=== PATIENT | female | born 1980 | race Caucasian/White ===

== ENCOUNTER 2017-05-31 18:28 | Emergency (ER) | payer OTHER, MEDICAID, SELFPAY ==
[2017-05-31 18:28] VITALS: PULSE 92; RESP 16; TEMP 37.1; O2SAT 100; BMI 29.0
[2017-05-31 20:27] LABS: Bacteria 0 SEEN /hpf (None Seen); Mucous, Urine 0 SEEN /hpf (<or=2+); Red Blood Cells-Urine 0 SEEN /hpf (0-5)
[2017-05-31 20:30] LABS: Color, Urine Yellow (Yellow); Glucose, Dipstick Normal (Normal); Ketone-Dipstick Negative (Negative); Leukocyte Esterase-Dipstick 100 /ul (Negative); Nitrite-Dipstick Negative (Negative); Occult Blood-Urine Negative /ul (Negative); Protein-Dipstick Negative (Negative); Specific Gravity, Urine 1.005 (1.002-1.030); Urine Bilirubin Dipstick Negative (Negative); Urine Clarity Clear (Clear); Urine Urobilinogen Normal (Normal)
[2017-05-31 20:49] LABS: Squamous Epithelial Cells - UA 0-5 SEEN /hpf (5-10); White Blood Cells 0-5 SEEN /hpf (0-5)
[2017-05-31 20:52] LABS: Absolute Lymphocyte Count 1.74 X10^3/ul (0.83-4.51); Absolute Neutrophil Count 5.9 X10^3/uL (2.0-7.7); Basophil# 0.02 X10^3/uL; Basophil% 0.2 % (0-1); Eosinophil# 0.15 X10^3/uL; Eosinophils% 1.7 % (0-5); Lymphocyte # 1.74 X10^3/ul (4.0); Lymphocyte % 19.2 % (19-41); Mean Corp Hgb Conc 33.3 g/gl (32-36); Mean Corpuscular Hgb 30.8 pg (27.0-32.0); Mean Corpuscular Volume 92.5 fL (81-99); Mean Platelet Vol. 10.1 fl (6.2-12.0); Monocyte# 1.21 X10^3/uL; Monocyte% 13.3 % (0-10); Neutrophil # 5.93 X10^3/uL (2.7-7.7); Neutrophil % 65.4 % (47-70); Platelet Count 397 K/mm3 (150-450); RBC Distribution Width CV 12.9 % (11.6-14.6); RBC Distribution Width SD 43.3 fl (35.1-43.9); Red Blood Count 4.54 M/mm3 (4.2-5.4); White Blood Count 9.1 K/mm3 (4.4-11.0)
[2017-05-31 20:55] LABS: POSITIVE COUNT NO; POSITIVE DIFFERENTIAL NO; POSITIVE MORPHOLOGY NO
[2017-05-31 21:05] LABS: Anion Gap 6 (5-15); BUN 12 mg/dL (7-18); BUN/Creat Ratio 13.6 RATIO (10-20); Calcium,Total 8.8 mg/dL (8.5-10.1); Chloride 107 mmol/L (98-107); Creatinine, Serum 0.88 mg/dL (0.55-1.02); EST Glomerular Filtration Rate 77 mL/min (>60); Est Glom Filt Rate - Afr Amer 93 mL/min (>60); Estimated Creatinine Clearance 85.94 ml/min; Glucose 92 mg/dL (74-106); Potassium 4.5 mmol/L (3.5-5.1); Sodium Level 139 mmol/L (136-145)
--- NOTE | 2017-05-31 21:06 | US_ITS ---
STUDY: ABDOMINAL ULTRASOUND - RIGHT UPPER QUADRANT REASON FOR VISIT: Female, 36 years old. Right upper quadrant pain. TECHNIQUE: Ultrasound evaluation of the right upper quadrant was performed with real-time and static cerda-scale imaging. TECHNICAL QUALITY: Adequate. COMPARISON: None. FINDINGS: Liver: The liver measures 20.2 cm. There is increased echogenicity consistent with fatty infiltration. The bile ducts are within normal limits. There is hepatic color flow. The direction of portal flow is hepatopetal. There is no demonstrated mass lesion. Gallbladder: Normal distended gallbladder. The gallbladder wall measures 2 mm. There is a negative sonographic Nieves's sign. There is no pericholecystic fluid. There are no gallstones. Common Bile Duct (C.B.D.): The common bile duct measures 2 mm. Pancreas: Normal appearance of the head and partial body with the tail not completely seen. There is normal echogenicity of the pancreas. There is no demonstrated pancreatic mass or cyst. Right Kidney: Normal size of the right kidney. The right kidney measures 11.5 x 5.3 x 4.5 cm. Normal renal cortex. The right cortex measures 1.0 cm. There is no demonstrated renal mass or cyst. There is no right hydronephrosis. US/Gallbladder IMPRESSION: Hepatic steatosis with no evidence of acute abdominal process by ultrasound. Electronically Signed: Dago Blunt DO at 22:02 EST , Service support ,
[2017-05-31 21:20] LABS: Pregnancy, Serum, hCG Quali. NEGATIVE Negative (0-9 Nonpreg)
[2017-05-31 21:41] LABS: Lipase 217 U/L (73-393)
[2017-05-31 21:46] LABS: AST(SGOT) 26 U/L (15-37); Alanine Aminotransfer ALT/SGPT 28 U/L (13-56); Albumin, Serum 3.7 g/dL (3.2-5.0); Alkaline Phosphatase 49 U/L (45-117); Bilirubin, Direct 0.05 mg/dL (0.00-0.30); Globulin 3.8 g/dL (2.2-4.2); Protein, Total 7.5 g/dL (6.4-8.2)
[2017-05-31 21:54] VITALS: BP 156/98; PULSE 91; RESP 17; O2SAT 97
--- NOTE | 2017-05-31 22:14 | CT_ITS ---
STUDY: CT ABDOMEN AND PELVIS WITH CONTRAST REASON FOR EXAM: Female, 36 years old. Right-sided abdominal pain for several weeks. RADIATION DOSAGE (If Supplied By Facility): CTDIvol = ( 21.77 ) mGy, DLP = ( 1041.73 ) mGycm TECHNIQUE: Transaxial images were obtained from the dome of the diaphragm to the symphysis pubis without oral contrast. 100ML ml of Isovue 300 contrast was administered. Sagittal and coronal images were reconstructed. Individualized dose optimization techniques were used for this CT. COMPARISON: None. FINDINGS: The visualized lung bases are unremarkable. The visualized portions of the heart are within normal limits. Normal liver. Normal gallbladder and extrahepatic biliary system. Normal spleen. Normal pancreas. Normal bilateral adrenal glands. Normal right kidney. Normal left kidney. Normal visualized stomach. Normal small intestine. Normal colon. There is non-visualization of the appendix. Normal abdominal aorta. Normal inferior vena cava. Normal retroperitoneum. Normal urinary bladder. Bilateral pelvic adnexal clips are in place. There is a small umbilical hernia containing fat. Normal osseous structures. CT/Abdomen/Pelvis W IV Cont ONLY IMPRESSION: 1. No evidence of acute intra-abdominal process or focal inflammation. 2. Small fat-containing umbilical hernia is present with no evidence of inflammation. Electronically Signed: Dago Blunt DO at 23:20 EST , Service support ,
[2017-05-31] MEDS: Dicyclomine 10 MG Capsule 20 MG PO (22:20)
--- NOTE | 2017-05-31 23:28 | ED.VISSUMM ---
- ER Visit Summary Date of Service: 05/31/17 Chief Complaint: Abdominal pain History of Present Illness: The patient is a 36 F note several weeks having upper abdominal pain. She notes a right upper quadrant pain that radiates to the left. She states is worse with food. She notes alternating diarrhea and formed stools. No vomiting. No fevers. Pain has been worsening Physical Examination: Afebrile vital signs are stable Gen: Well-nourished well-developed Head: Normocephalic atraumatic Eyes: Perrl EOMI ENT: TMs clear no rhinorrhea moist mucous membranes Neck: Supple no lymphadenopathy no JVD nontender CVS: Regular rate rhythm no murmurs normal S1-S2 Respiratory: No distress clear to auscultation bilaterally chest nontender Abdomen: Soft tender to palpation right upper quadrant epigastrium without guarding or rebound nondistended normal bowel sounds no masses Back: Nontender Extremity: Nontender no edema Skin: Normal color no rash Neuro: alert orientated ?3 CN II-XII intact normal strength sensation reflexes gait cerebellar Psych: Tearful at times smiling at others Test Results: CBC CMP lipase normal. Urinalysis normal. Gallbladder ultrasound normal CT abdomen pelvis normal Emergency Department Course and Treatment: Patient received a dose of Bentyl. She states that the right upper quadrant pain was better but the epigastric pain still remained. She received a GI cocktail. She tells me that rounded the pain out. We will place her on Pepcid she needs to follow-up with primary care. She is unsure of who she wants to see for primary care I will refer her next on the no doc list Impression: 1. Acute abdominal pain This note was generated with [employer] dictation software. It may contain incorrect words, spelling, and punctuation that were not noted in review of the chart prior to signing ED Disposition - Plan for ED Patient: Disposition: Home or Assisted Living Chief Complaint: Abd Pain Instructions: ED Abdominal Pain Unkn Cause Prescriptions: Famotidine [Pepcid] 20 mg PO BID #28 tab Referrals: Care Physician,No Primary [Primary Care Provider] - Yusuf Wilkins MD [STAFF PHYSICIAN] - (call in am to schedule follow up appointment)
[2017-05-31 23:43] VITALS: BP 125/68; PULSE 76; RESP 18; O2SAT 98
== END 2017-05-31 23:44 | disposition home or self-care (01) ==
PROVIDERS: Emergency Provider Emergency Medicine
DX: R10.11 Right upper quadrant pain (principal); R10.13 Epigastric pain; R19.4 Change in bowel habit; E66.9 Obesity, unspecified; J34.89 Other specified disorders of nose and nasal sinuses; R05 Cough
CPT/HCPCS: 74177; 76705; 80048; 80076; 81001; 83690; 84703; 85025; 99284; J7030; Q9967; A4216

== ENCOUNTER 2020-04-14 18:30 | Emergency (ER) | payer MEDICAID, SELFPAY ==
[2020-04-14 18:30] VITALS: BP 166/74; PULSE 82; RESP 16; TEMP 36.6; O2SAT 100; BMI 27.3
[2020-04-14 18:58] VITALS: BP 142/77; PULSE 86; RESP 20; O2SAT 98
--- NOTE | 2020-04-14 19:09 | US_ITS ---
STUDY: ABDOMINAL ULTRASOUND - RIGHT UPPER QUADRANT REASON FOR VISIT: Female, 39 years old. Right upper quadrant pain. TECHNIQUE: Ultrasound evaluation of the right upper quadrant was performed with real-time and static cerda-scale imaging. TECHNICAL QUALITY: Adequate. COMPARISON: CT of the abdomen and pelvis, 05/31/2017. FINDINGS: Liver: The liver measures 17.1 cm. There is normal echogenicity of the liver. There is focal fatty sparing in the gallbladder fossa. There is hepatic color flow. The direction of portal flow is hepatopetal. There is no demonstrated mass lesion. Gallbladder: Normal distended gallbladder. The gallbladder wall measures 2 mm. There is a negative sonographic Nieves''s sign. There is no pericholecystic fluid. There are no gallstones. Common Bile Duct (C.B.D.): The common bile duct measures 3 mm. Pancreas: Normal size of the head, body and tail of the pancreas. There is normal echogenicity of the pancreas. There is no demonstrated pancreatic mass or cyst. Right Kidney: Normal size of the right kidney. The right kidney measures 10.5 cm. Normal renal cortex. The right cortex measures 0.7 cm. There is no demonstrated renal mass or cyst. There is no right hydronephrosis. US/Abdomen Limited IMPRESSION: Fatty infiltration of the liver. The study is otherwise grossly unremarkable. Electronically Signed: Parag Gonzalez DO at 20:16 EST Tel [phone], Service support ,
--- NOTE | 2020-04-14 19:09 | ED.VIS.GEN ---
History of Present Illness Chief Complaint: Abd Pain Informant: Patient Onset: Weeks - 1 week Context: Gradual Onset Current Severity: Moderate Maximum Severity: Severe Narrative: Patient presents with right upper quadrant abdominal pain for the past 1 week. She states it started as an ache and thought she may have strained something. Pain is worse with a deep breath and movement of her arm. She states she cannot lay on her side. She denies skin rash. She has had a very poor appetite and not been eating much. She has not noted fever or chills. - Past Medical History (1) Asthma Status: Chronic (2) History of stomach ulcers Status: Chronic (3) Hypertension Status: Chronic (4) IBS (irritable bowel syndrome) Status: Chronic Past Medical History - Allergies and Home Meds Allergies/Adverse Reactions: Allergies Penicillins Allergy (Verified 04/14/20 18:32) Unknown Primary Care Physician: Care Physician,No Primary [Primary Care Provider] - Prior records reviewed: Yes Lives: With Family Smoking Status: Light Smoker (<10/day) Review of Systems General: Denies: Chills, Fever Eyes: Denies: Visual changes - bilaterally ENT: Denies: Bilateral ear pain Cardiovascular: Denies: Chest pain Respiratory: Reports: Dyspnea - Increased pain with deep breath. Denies: Cough Gastrointestinal: Reports: Abdominal pain. Denies: Vomiting, Diarrhea Genitourinary: Denies: Dysuria Musculoskeletal: Denies: Swelling, Extremity Pain Skin: Denies: Rash Neurological: Denies: Headache Hematologic: Denies: Easy bruising, Easy bleeding Allergy: Denies: Uticaria Physical Exam Vital Signs/Narrative: Vital Signs Temp Pulse Resp BP Pulse Ox 04/14/20 18:58 86 20 H 142/77 H 98 04/14/20 18:30 97.9 F 82 16 166/74 H 100 Inital Vital Signs reviewed: Yes General: Well nourished, Well developed Head: Normocephalic Neck: Supple Cardiovascular: Regular rate, Regular rhythm Respiratory: No distress, CTA bilaterally Abdomen: Soft, Tender - Moderate tenderness right upper quadrant., Hypoactive bowel sounds Skin: Normal color Neurological: Alert, Oriented x3 Psychological: - - Anxious Diagnostic/Tx/Re-eval Chest X-Ray - ED: 1 View, Read by ED Physician, Normal, Heart, Lungs, Mediastinum Impressions Abdomen Ultrasound 04/14/20 19:09 IMPRESSION: Fatty infiltration of the liver. The study is otherwise grossly unremarkable. Electronically Signed: Parag Gonzalez DO at 20:16 EST Tel [phone], Service support , Chest X-Ray 04/14/20 19:27 IMPRESSION: No acute cardiopulmonary disease or major interval change. Electronically Signed: Parag Gonzalez DO at 19:52 EST Tel [phone], Service support , 04/14/20 19:09 Abdomen Limited [US] Stat 04/14/20 19:27 Chest 1 View (Portable) [RAD] Stat Laboratory Results 04/14/20 04/14/20 19:20 19:20 WBC 10.2 RBC 4.91 Hgb 11.6 L Hct 37.3 MCV 76.0 L MCH 23.6 L MCHC 31.1 L RDW Std Deviation 47.8 H RDW Coeff of Belkys 17.5 H Plt Count 593 H MPV 9.0 Immature Gran % (Auto) 0.400 Neut % (Auto) 61.4 Lymph % (Auto) 28.2 Bowman % (Auto) 7.8 Eos % (Auto) 1.3 Baso % (Auto) 0.9 Absolute Neuts (auto) 6.3 Absolute Lymphs (auto) 2.87 Nucleated RBC % 0 Sodium 140 Potassium 3.9 Chloride 108 H Carbon Dioxide 25.0 Anion Gap 7 BUN 10 Creatinine 0.89 Estim Creat Clear Calc 82.53 Est GFR (MDRD) Af Amer 91 Est GFR (MDRD) Non-Af 75 BUN/Creatinine Ratio 11.2 Glucose 99 Calcium 9.3 Total Bilirubin 0.20 Direct Bilirubin 0.07 AST 7 L ALT 21 Alkaline Phosphatase 53 Total Protein 7.8 Albumin 4.1 Globulin 3.7 Lipase 186 - Medical Decision Making Patient was given morphine and Zofran for pain. Blood work is largely unremarkable. Chest x-ray per my interpretation reveals no focal infiltrates. Radiologist interpretation is reviewed. Ultrasound of the right upper quadrant reveals normal gallbladder. On repeat evaluation patient states her pain was improved but is now worsening again. She will be given another dose of pain medication. She does state pain is worse with movement of her arm as well as deep breath. Pain does radiate all the way down her right side and I do wonder she does not have muscle spasm. Patient does have significant tenderness even with light touch. No evidence of rash at this time to suggest shingles. Patient will be discharged with prescription for [place] as well as Flexeril and naproxen. She will be given local PCP follow-up information. ED Disposition - Plan for ED Patient: Disposition: Home or Assisted Living Diagnosis: Abdominal wall pain Instructions: ED Abdominal Pain Unkn Cause Fem Prescriptions: cycloBENZAPRine HCl [Flexeril] 10 mg PO TID PRN #20 tab PRN Reason: Muscle Spasm Transmission Status: Pending to [facility] Naproxen [Naprosyn] 500 mg PO BID PRN PRN #20 tab PRN Reason: Pain Score 4-10 Transmission Status[facility] Hydrocodone Bitart/Apap 5-325 [[place] 5MG-325MG] 1 tablet PO Q6H PRN PRN 3 Days #10 tablet PRN Reason: Pain Transmission Status: Sent to [facility] Referrals: Aly Still, [NON CLINICAL AFFILIATE] - 3-5 Days if not improving
[2020-04-14] MEDS: 0.9% Normal Saline 1,000 ML 150 ML IV (19:23)
[2020-04-14] MEDS: Ondansetron 4 MG/2 ML Vial IV ×2 (19:23→20:40)
[2020-04-14] MEDS: Morphine 4 MG/ML Syringe IV ×2 (19:24→20:40)
--- NOTE | 2020-04-14 19:27 | RAD_ITS ---
STUDY: X-RAY CHEST REASON FOR EXAM: Female, 39 years old. Right upper quadrant pain since last Tuesday. Pain with respiration. TECHNIQUE: Single AP portable view of the chest. COMPARISON: 12/19/2012. FINDINGS: The lungs are clear and expanded. There is no demonstrated pleural abnormality. Normal size heart. Normal mediastinum and franco. Normal visualized pulmonary arteries. Normal visualized aortic arch and descending thoracic aorta. Normal visualized thoracic spine. Normal visualized ribs, clavicles, and shoulders. There is no demonstrated abnormality of the visualized soft tissue structures of the upper abdomen. RAD/Chest 1 View (Portable) IMPRESSION: No acute cardiopulmonary disease or major interval change. Electronically Signed: Parag Gonzalez DO at 19:52 EST Tel [phone], Service support ,
[2020-04-14 19:28] LABS: Absolute Lymphocyte Count 2.87 X10^3/uL (0.83-4.51); Absolute Neutrophil Count 6.3 X10^3/uL (2.0-7.7); Basophil# 0.09 X10^3/uL; Basophil% 0.9 % (0-1); Eosinophil# 0.13 X10^3/uL; Eosinophils% 1.3 % (0-5); Hematocrit 37.3 % (37-47); Hemoglobin 11.6 g/dL (12.0-15.0); Lymphocyte # 2.87 X10^3/ul (4.0); Lymphocyte % 28.2 % (19-41); Mean Corp Hgb Conc 31.1 g/dL (32-36); Mean Corpuscular Hgb 23.6 pg (27.0-32.0); Monocyte# 0.79 X10^3/uL; Monocyte% 7.8 % (0-10); NRBC Flagged by Analyzer 0 % (0-5); Neutrophil # 6.25 X10^3/uL (2.7-7.7); Neutrophil % 61.4 % (47-70); Platelet Count 593 K/mm3 (150-450); RBC Distribution Width CV 17.5 % (11.6-14.6); RBC Distribution Width SD 47.8 fl (35.1-43.9); Red Blood Count 4.91 M/mm3 (4.2-5.4); White Blood Count 10.2 K/mm3 (4.4-11.0)
[2020-04-14 19:44] LABS: AST(SGOT) 7 U/L (15-37); Alanine Aminotransfer ALT/SGPT 21 U/L (13-56); Albumin, Serum 4.1 g/dL (3.2-5.0); Alkaline Phosphatase 53 U/L (45-117); Anion Gap 7 (5-15); BUN 10 mg/dL (7-18); BUN/Creat Ratio 11.2 RATIO (10-20); Bilirubin, Direct 0.07 mg/dL (0.00-0.30); Calcium,Total 9.3 mg/dL (8.5-10.1); Chloride 108 mmol/L (98-107); Creatinine, Serum 0.89 mg/dL (0.55-1.02); EST Glomerular Filtration Rate 75 mL/min (>60); Est Glom Filt Rate - Afr Amer 91 mL/min (>60); Estimated Creatinine Clearance 82.53 ml/min; Globulin 3.7 g/dL (2.2-4.2); Glucose 99 mg/dL (74-106); Lipase 186 U/L (73-393); Potassium 3.9 mmol/L (3.5-5.1); Protein, Total 7.8 g/dL (6.4-8.2); Sodium Level 140 mmol/L (136-145)
[2020-04-14] MEDS: Ketorolac 30 MG/ML Syringe IV (20:40)
[2020-04-14 21:09] VITALS: BP 136/77; PULSE 64; RESP 18; O2SAT 96
== END 2020-04-14 21:10 | disposition home or self-care (01) ==
PROVIDERS: Emergency Provider Emergency Medicine
DX: R10.9 Unspecified abdominal pain (principal); K58.9 Irritable bowel syndrome, unspecified; J45.909 Unspecified asthma, uncomplicated; Z87.19 Personal history of other diseases of the digestive system; F17.200 Nicotine dependence, unspecified, uncomplicated
CPT/HCPCS: 71045; 76705; 80048; 80076; 83690; 85025; 96361; 96374; 96375; 96376; 99283; J7030; J2405